=== PATIENT | female | born 1990 | race Two or more races ===

== ENCOUNTER 2022-09-17 20:42 | Emergency (ER) | payer BC, SELFPAY ==
[2022-09-17 21:04] VITALS: BP 99/67; PULSE 91; RESP 20; TEMP 36.6; O2SAT 98; BMI 30.8
--- NOTE | 2022-09-17 21:05 | ED_ITS ---
HPI - General Adult General Chief complaint: Neck Pain/Injury <Gabby Calabrese MD - Last Filed: 09/17/22 21:10> Stated complaint: neck pain from work <Gabby Calabrese MD - Last Filed: 09/17/22 21:10> Time Seen by Provider: 09/17/22 22:18 <Gabby Calabrese MD - Last Filed: 09/17/22 21:10> Source: patient <Sonia Kelley MD - Last Filed: 09/17/22 22:30> Mode of arrival: ambulatory <Sonia Kelley MD - Last Filed: 09/17/22 22:30> Limitations: no limitations <Sonia Kelley MD - Last Filed: 09/17/22 22:30> History of Present Illness HPI narrative: Patient comes to the emergency room complaining of a traumatic left-sided neck pain. 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 Patient denies any trauma. On arrival to the ED, patient was given p.o. ramirez taminophen, cyclobenzaprine, IM ketorolac and had lidocaine patch. Patient denies fever chills. Patient denies numbness and tingling in upper lower extremities <Sonia Kelley MD - Last Filed: 09/17/22 22:30> Related Data Home medications: Previous Rx's Medication Instructions Recorded cyclobenzaprine 10 mg tablet 10 mg PO TID PRN muscle spasm #14 09/17/22 tabs ibuprofen 600 mg tablet 600 mg PO TID PRN fever or pain 09/17/22 #10 tabs <Gabby Calabrese MD - Last Filed: 09/17/22 21:10> Allergies/adverse reactions: Allergies Allergy/AdvReac Type Severity Reaction Status Date / Time Sulfa (Sulfonamide Allergy Unknown Verified 09/17/22 21:06 Antibiotics) <Gabby Calabrese MD - Last Filed: 09/17/22 21:10> Review of Systems Review of Systems: Constitutional : No Weight loss, No Fever, No Chills, No Night Sweats, No Fatigue, No Malaise ENT/Mouth : No Hearing loss, No Ear Pain, No Nasal Congestion, No Sinus Pain, No Hoarseness, No sore throat, No Rhinorrhea, No Swallowing Difficulty Eyes: No Eye Pain, No Swelling, No Redness, No Foreign Body, No Discharge, No Vision Changes Cardiovascular : No Chest Pain, No SOB, No Dyspnea on Exertion, No Orthopnea, No Edema, No Palpitations Respiratory : No Cough, No Sputum, No Wheezing, No Smoke Exposure, No Dyspnea Gastrointestinal : No Nausea, No Vomiting, No Diarrhea, No Constipation, No abdominal Pain, No Hematochezia, No Melena Genitourinary : no irregular bleeding, No Dysuria, No Urinary Frequency, No Hematuria, No Urinary Incontinence, No Urgency, No Flank Pain, No Urinary Flow Changes, No Hesitancy Musculoskeletal : Complaining of left-sided neck pain/spasms and upper back pain bilaterally Skin : No Skin Lesions, No rash Neuro : No Weakness, No Numbness, No Paresthesias, No Loss of Consciousness, No Dizziness, No Headache Psych : No Anxiety/Panic, No Depression, No SI/HI/AH/VH, No Social Issues, Heme/Lymph: No Bruising, No Bleeding,No Lymphadenopathy Endocrine : No Polyuria, No Polydipsia, No Temperature Intolerance <Sonia Kelley MD - Last Filed: 09/17/22 22:30> Physical Exam ED Vital Signs: Vital Signs - 24 hr 09/17/22 21:04 Temperature 97.8 F Pulse Rate 91 Respiratory Rate 20 Blood Pressure 99/67 Pulse Oximetry 98 Oxygen Delivery Method Room Air BMI result Body Mass Index 30.8 <Gabby Calabrese MD - Last Filed: 09/17/22 21:10> Vital Signs - 24 hr 09/17/22 21:04 Temperature 97.8 F Pulse Rate 91 Respiratory Rate 20 Blood Pressure 99/67 Pulse Oximetry 98 Oxygen Delivery Method Room Air BMI result Body Mass Index 30.8 <Sonia Kelley MD - Last Filed: 09/17/22 22:30> Const Other: Appearance: Alert. Oriented X3. No acute distress. Eyes: Pupils equal, round and reactive to light. ENT: Pharynx normal. Neck: Normal inspection. Neck supple. No lymph nodes noted. No crepitus, no C- spine tenderness to palpation, normal flexion and extension, pain to palpation only on the left side of the neck and suprascapular area on the left. CVS: Normal heart rate and rhythm. Pulses normal. Normal S1 and S2 Respiratory: No respiratory distress. Breath sounds normal. No Wheezing. No rales Abdomen: Soft and nontender. No rigidity. No distention. Skin: Skin warm and dry. Normal skin color. Normal skin turgor. Extremities: No lower extremity edema. No Lacerations. No Rash Neuro: Oriented X 3. No motor deficit. No sensory deficit. Moving all extremities. No slurred speech. CN 2 through 12 grossly intact Psych: calm, cooperative, normal affect <Sonia Kelley MD - Last Filed: 09/17/22 22:30> Course Course Course Narrative: 32F p/w pain at left side of neck that is atraumatic in nature and not associated with fevers, chills, or numbness/tingling in upper extremity. Pain suddenyl occured when she was bringing together 2 cords. VITAL SIGNS: Reviewed. GENERAL: Well developed, well nourished, in no acute distress. HEAD: Normocephalic/atraumatic EYES: PERRLA, EOMI EARS: Ext canals without abnormality OROPHARYNX: no oral lesions noted, posterior pharynx clear NECK: Supple, no adenopathy, spasm at left neck and onto shoulder LUNGS: Normal breath sounds. No adventitious sounds or accessory muscle use. CARDIOVASCULAR: Regular rate and rhythm without noted murmurs ABDOMEN: Soft, non-tender, non-distended with bowel sounds. <Gabby Calabrese MD - Last Filed: 09/17/22 21:10> 32F p/w pain at left side of neck that is atraumatic in nature and not associated with fevers, chills, or numbness/tingling in upper extremity. Pain suddenyl occured when she was bringing together 2 cords. VITAL SIGNS: Reviewed. GENERAL: Well developed, well nourished, in no acute distress. HEAD: Normocephalic/atraumatic EYES: PERRLA, EOMI EARS: Ext canals without abnormality OROPHARYNX: no oral lesions noted, posterior pharynx clear NECK: Supple, no adenopathy, spasm at left neck and onto shoulder LUNGS: Normal breath sounds. No adventitious sounds or accessory muscle use. CARDIOVASCULAR: Regular rate and rhythm without noted murmurs ABDOMEN: Soft, non-tender, non-distended with bowel sounds. Patient received Toradol, acetaminophen, Lidoderm patch and cyclobenzaprine. Patient ready for discharge <Sonia Kelley MD - Last Filed: 09/17/22 22:30> Medications Administered Discontinued Medications Generic Name Dose Route Start Last Admin Trade Name Freq PRN Reason Stop Dose Admin Acetaminophen 975 mg 09/17/22 21:07 09/17/22 21:12 Acetaminophen 325 Mg Tablet PO 09/17/22 21:08 975 mg ONCE ONE Administration Cyclobenzaprine HCl 5 mg 09/17/22 21:08 09/17/22 21:12 Cyclobenzaprine Hcl 5 Mg Tablet PO 09/17/22 21:09 5 mg ONCE ONE Administration Ketorolac Tromethamine 15 mg 09/17/22 21:07 09/17/22 21:13 Ketorolac Tromethamine 15 Mg/Ml Vial IM 09/17/22 21:08 15 mg ONCE ONE Administration Lidocaine 1 patch 09/17/22 21:07 09/17/22 21:13 Lidocaine 4 % Patch Adh..Patch TRANSDERMA 09/17/22 21:08 1 patch ONCE ONE Administration Protocol <Gabby Calabrese MD - Last Filed: 09/17/22 21:10> Medications Administered Discontinued Medications Generic Name Dose Route Start Last Admin Trade Name Baldoq PRN Reason Stop Dose Admin Acetaminophen 975 mg 09/17/22 21:07 09/17/22 21:12 Acetaminophen 325 Mg Tablet PO 09/17/22 21:08 975 mg ONCE ONE Administration Cyclobenzaprine HCl 5 mg 09/17/22 21:08 09/17/22 21:12 Cyclobenzaprine Hcl 5 Mg Tablet PO 09/17/22 21:09 5 mg ONCE ONE Administration Ketorolac Tromethamine 15 mg 09/17/22 21:07 09/17/22 21:13 Ketorolac Tromethamine 15 Mg/Ml Vial IM 09/17/22 21:08 15 mg ONCE ONE Administration Lidocaine 1 patch 09/17/22 21:07 09/17/22 21:13 Lidocaine 4 % Patch Adh..Patch TRANSDERMA 09/17/22 21:08 1 patch ONCE ONE Administration Protocol <Sonia Kelley MD - Last Filed: 09/17/22 22:30> Discharge Plan Discharge Clinical Impression: Strain of neck muscle <Gabby Calabrese MD - Last Filed: 09/17/22 21:10> Patient Disposition: Home, Self-Care <Gabby Calabrese MD - Last Filed: 09/17/22 21:10> Instructions: Neck Pain (ED) <Gabby Calabrese MD - Last Filed: 09/17/22 21:10> Additional Instructions: Please follow-up with your primary care physician tomorrow. If you have any worsening or new symptoms, please return to the emergency room or call 911 <Gabby Calabrese MD - Last Filed: 09/17/22 21:10> Prescriptions: New cyclobenzaprine 10 mg tablet 10 mg PO TID PRN (Reason: muscle spasm) Qty: 14 0RF ibuprofen 600 mg tablet 600 mg PO TID PRN (Reason: fever or pain) Qty: 10 0RF <Gabby Calabrese MD - Last Filed: 09/17/22 21:10> Stand Alone Forms: Work/School Release <Gabby Calabrese MD - Last Filed: 09/17/22 21:10>
[2022-09-17] MEDS: Acetaminophen 325 MG TABLET 975 MG PO (21:12)
[2022-09-17] MEDS: Cyclobenzaprine HCl 5 MG TABLET PO (21:12)
[2022-09-17] MEDS: Ketorolac Tromethamine 15 MG/ML VIAL IM (21:13)
[2022-09-17] MEDS: Lidocaine 4 % Patch ADH..PATCH 1 PATCH TRANSDERMA (21:13)
== END 2022-09-17 22:40 | disposition home or self-care (01) ==
LOC: HO.ED 22:33
PROVIDERS: Emergency Provider Emergency Medicine
DX: M54.2 Cervicalgia (principal); Z79.899 Other long term (current) drug therapy
CPT/HCPCS: 96372; 99283; 99284; J1885